=== PATIENT | male | born 1995 | race Caucasian/White ===

== ENCOUNTER 2022-09-10 12:16 | Emergency (ER) | payer SELFPAY ==
[~2022-09-10] VITALS: Ht 177.8 cm; Wt 91.0 kg
[2022-09-10 12:18] VITALS: O2SAT 99
[2022-09-10 12:41] VITALS: BP 115/82; PULSE 100; RESP 16; TEMP 98.8
== END 2022-09-10 12:48 | disposition home or self-care (01) ==
LOC: ER 12:28
DX: F10.129 Alcohol abuse with intoxication, unspecified (principal); Z13.9 Encounter for screening, unspecified; Y90.9 Presence of alcohol in blood, level not specified
CPT/HCPCS: 99283